=== PATIENT | male | born 1995 | race Hispanic/Latino ===

== ENCOUNTER 2018-10-23 22:18 | Emergency (ER) | payer SELFPAY ==
[~2018-10-23] VITALS: Ht 167.6 cm; Wt 63.5 kg
[2018-10-23] MEDS ORDERED: CORTISPORIN-TC10 ML EACH EAR (23:30)
[2018-10-23] MEDS ORDERED: IBUPROFEN400 MG PO (23:31)
== END 2018-10-24 | disposition home or self-care (01) ==
LOC: FSED 22:18
DX: H60.91 Unspecified otitis externa, right ear (principal)
CPT/HCPCS: 99282